=== PATIENT | male | born 1960 | race Caucasian/White ===

== ENCOUNTER 2023-02-23 11:00 | Emergency (ER) | payer MEDICAID ==
[2023-02-23 11:15] VITALS: BP_SYST 165
--- NOTE | 2023-02-23 11:18 | NUR ---
PT TRIAGED, PT PLACED IN ROOM 4, REPORT GIVEN TO RN, DEEJAY.
[2023-02-23] MEDS ORDERED: KETOROLAC TROMETHAMINE 60 MG/2 ML VIAL IM ONE (11:30)
--- NOTE | 2023-02-23 11:34 | NUR ---
PT BIB DAUGHTER C/O OF LOWER BACK PAIN. PT STATES IT IS 10 OUT OF 10 PAIN. PT DENIES ANY TRAUMA OR ACTIVITY THAT CAUSED THE PAIN TO START. PT IS G[employer] 15 EYES OPEN SPONTANEOUSLY, ORIENTED TO PERSON, PLACE, TIME, AND SITUATION. PT OBEYS COMMANDS. PT DENIES AUDITORY OR VISUAL DISTURBANCE. PT DENIES CHEST PAIN OR SOB. PT DENIES ABDOMINAL PAIN, N/V/D AND DIZZINESS. PT ONLY COMPLAIN IS THE PAIN. PT IS IN ROOM 4 ON THE MONITOR.
--- NOTE | 2023-02-23 11:40 | NUR ---
ER at bedside examining patient.
[2023-02-23 12:19] LABS: BASOPHILS % (AUTO) 0.4 % (0.0-2.0); EOSINOPHILS # (AUTO) 0.2 K/uL (0.0-0.4); HEMATOCRIT 39.9 % (36-54); HEMOGLOBIN 13.6 g/dL (14.0-18.0); LYMPHOCYTES # (AUTO) 1.5 K/uL (1.0-5.5); LYMPHOCYTES % (AUTO) 30.6 % (20.5-51.5); MEAN CORPUSCULAR HEMOGLOBIN 33 pg (27-31); MEAN CORPUSCULAR HGB CONC 34 % (32-36); MEAN CORPUSCULAR VOLUME 96 fL (79.0-98.0); MONOCYTES # (AUTO) 0.4 K/uL (0.0-1.0); MONOCYTES % (AUTO) 8.7 % (1.7-9.3); NEUTROPHILS # (AUTO) 2.8 K/uL (1.8-7.7); NEUTROPHILS % (AUTO) 56.3 % (40.0-70.0); PLATELET COUNT (AUTO) 253 K/uL (130-430); RED BLOOD CELL COUNT(AUTO) 4.15 MIL/uL (4.2-6.2); RED CELL DISTRIBUTION WIDTH 13.2 % (9.0-15.0); WHITE BLOOD COUNT (AUTO) 4.9 K/uL (4.8-10.8)
[2023-02-23 12:29] LABS: BILIRUBIN,URINE NEGATIVE (NEGATIVE); BLOOD, URINE NEGATIVE (NEGATIVE); CLARITY/URINE CLEAR (CLEAR); COLOR,URINE YELLOW (YELLOW); GLUCOSE,URINE 3+ (NEGATIVE); KETONES,URINE NEGATIVE (NEGATIVE); LEUKOCYTE ESTERASE ,URINE NEGATIVE (NEGATIVE); NITRITE, URINE NEGATIVE (NEGATIVE); PH,URINE 5.5 (5.0-8.0); PROTEIN URINE NEGATIVE (NEGATIVE); UROBILINOGEN,URINE 0.2 (0.2-1.0)
[2023-02-23 12:29] LABS: ANION GAP 9 (5-15); CALCIUM 8.3 mg/dL (8.4-11.0); CHLORIDE 100 mmol/L (98-107); CREATININE 0.69 mg/dL (0.55-1.30); GFR AFRICAN AMERICAN 149 mL/min (>90); GLUCOSE 310 mg/dL (70-99); UREA NITROGEN, BLOOD 13 mg/dL (8-21)
[2023-02-23 12:34] LABS: C-REACTIVE PROTEIN QUANT < 0.2 mg/dL (0-0.5)
[2023-02-23 12:46] LABS: ALANINE AMINOTRANSFERASE 21 U/L (12-78); ALBUMIN 3.3 g/dL (3.4-4.8); AMYLASE 29 U/L (0-100); ASPARTATE AMINOTRANSFERASE 9 U/L (10-37); LIPASE 106 U/L (73-393); TOTAL BILIRUBIN 0.5 mg/dL (0.0-1.0)
--- NOTE | 2023-02-23 13:27 | NUR ---
Checked with patient and he is sleeping on gurney. Family member states patient still will pain but feeling better than when he arrived.
[2023-02-23] MEDS ORDERED: IBUP-1971 PO (13:36)
[2023-02-23] MEDS ORDERED: TRAM50TA2 PO (13:36)
[2023-02-23 14:00] VITALS: BP_SYST 110
--- NOTE | 2023-02-23 14:02 | NUR ---
Patient given written and verbal discharge instructions and verbalizes understanding. ER MD discussed with patient the results and treatment provided. Patient in stable condition. ID arm band removed. Rx of ibuprofen 800 mg given. Patient educated on pain management and to follow up with PMD. Pain Scale 4 out of 10. Opportunity for questions provided and answered. Medication side effect fact sheet provided.
== END 2023-02-23 14:02 | disposition home or self-care (01) ==
LOC: SED 11:00
DX: M54.50 Low back pain, unspecified (principal); R10.9 Unspecified abdominal pain; Z79.899 Other long term (current) drug therapy
CPT/HCPCS: 99285; 74176; 80053; 82150; 83690; 85025; 86140; 36415; 76376; 96372; 81003; J1885